=== PATIENT | male | born 1965 | race Asian ===

== ENCOUNTER 2025-05-18 01:11 | Emergency (ER) | payer OTHER ==
[~2025-05-18] VITALS: Ht 170.2 cm; Wt 72.7 kg
[2025-05-18 01:28] VITALS: TEMP 98.2
[2025-05-18 02:05] LABS: PLATELET COUNT (AUTO) 304 K/uL (150-450); RED BLOOD CELL COUNT(AUTO) 4.25 MIL/uL (4.50-5.90); RED CELL DISTRIBUTION WIDTH 14.0 % (11.5-14.5); WHITE BLOOD COUNT (AUTO) 6.8 K/uL (4.5-11.0)
[2025-05-18 02:12] LABS: CALCIUM, TOTAL 8.9 mg/dL (8.8-10.5); CREATININE 1.32 mg/dL (0.60-1.30); GLOMERULAR FILTR. RATE CALC 55.0 mL/min (>60); GLUCOSE,RANDOM 129.0 mg/dL (70-110); SODIUM SERUM 143.0 mmol/L (136-145); UREA NITROGEN, BLOOD 21.0 mg/dL (7-18)
[2025-05-18 02:17] LABS: ASPARTATE AMINOTRANSFERASE 20.0 U/L (15-37); TOTAL PROTEIN, SERUM 7.4 g/dL (6.4-8.2)
[2025-05-18] MEDS: LevETIRAcetam 1,500 MG in DEXTROSE 5%-WATER 100 ML IV ONE (02:26)
[2025-05-18 03:21] VITALS: BP 158/92; PULSE 77; RESP 16; O2SAT 96
== END 2025-05-18 04:05 | disposition home or self-care (01) ==
LOC: EMS 01:14
DX: G40.909 Epilepsy, unspecified, not intractable, without status epilepticus (principal); E11.9 Type 2 diabetes mellitus without complications
CPT/HCPCS: 99284; 96365; 80048; 80076; 85025; 36415; 82962; 93005; J0712; J7060